=== PATIENT | female | born 1980 | race Caucasian/White ===

== ENCOUNTER 2018-03-17 07:26 | Outpatient (CLI) | payer BC | END 2018-03-17 08:50 | disposition home or self-care (01) | LOC: LDRP-OP 07:26 → 2WEST 07:27 | DX: O36.8190 Decreased fetal movements, unspecified trimester, not applicable or unspecified (principal); Z3A.00 Weeks of gestation of pregnancy not specified | CPT/HCPCS: 59025; G0378 ==